=== PATIENT | female | born 1975 | race Caucasian/White ===

== ENCOUNTER 2016-09-10 12:29 | Emergency (ER) | payer OTHER ==
[~2016-09-10] VITALS: Ht 172.7 cm; Wt 62.0 kg
[~2016-09-10 12:29] MED LIST: METH5TAB4 PO
[2016-09-10 12:31] VITALS: BP 107/71; PULSE 65; RESP 17; TEMP 98.1; O2SAT 100
[2016-09-10] MEDS ORDERED: METH5TAB4 PO (12:50)
[2016-09-10] MEDS ORDERED: BENZ100 PO (13:12)
[2016-09-10] MEDS ORDERED: PRED10PA2 PO (13:12)
--- NOTE | 2016-09-10 13:13 | PD ---
HPI . Persistent cough Chief Complaint: Cold / Flu Symptoms Time Seen by Provider: 13:02 Travel History International Travel<30 days: No Contact w/Intl Traveler<30days: No Traveled to known affect area: No History of Present Illness HPI Patient presents with a 3 week history of persistent cough. Fever. Cough is nonproductive. The severity of the cough seems to wax and wane. He was seen at urgent care at the onset of her illness and was treated with body aches and steroids. She states that she was on steroids for about a week. She initially seemed better. PFSH Past Medical History Cardiovascular Problems: No Diminished Hearing: No Genitourinary: Yes (HX OF OVARIAN CYSTS) Neurologic: Yes (L4 L5 HERNIATION CAUSES TINGLING IN FEET) Reproductive: Yes ("ENDOMETRIOSIS" NOT SURE) Immunizations Current: Yes Thyroid Disease: Yes (hyperthyroidism) ?: Not LMP: 09/10/2016 : 2 Para: 2 Tubal Ligation: Yes Past Surgical History Other Surgery: Yes (breast augmentation, abdominoplasty with revision) Family History Family Myocardial Infarction: Yes (AGE 48 YEARS - DAD HAD [place] ) Social History Alcohol Use: No Tobacco Use: Yes (07/23 ppd) Substance Use: Yes (marijauna edibles rarely) Allergies-Medications (Allergen,Severity, Reaction): Coded Allergies: No Known Allergies (Verified , 09/10/16) Reported Meds & Prescriptions Reported Meds & Active Scripts Active Tessalon Perles (Benzonatate) 100 Mg Cap 200 Mg PO TID PRN Prednisone (48) 10 mg tab Dose Pack (Prednisone) 10 Mg Dspk 10 Mg PO DIRECTED Reported Methimazole 5 Mg Tab 5 Mg PO DAILY Review of Systems Except as stated in HPI: all other systems reviewed are Neg General / Constitutional: No: Fever, Chills HENT: No: Congestion Respiratory: Positive: Cough Physical Exam Narrative GENERAL: Healthy-appearing young woman in no acute distress. SKIN: Warm and dry. HEAD: Atraumatic. Normocephalic. EYES: Pupils equal and round. ENT: No nasal bleeding or discharge. Mucous membranes pink and moist. NECK: Trachea midline. Neck is supple. CARDIOVASCULAR: Regular rate and rhythm. Heart sounds are normal. RESPIRATORY: No accessory muscle use. Lungs are clear with full air movement throughout. GASTROINTESTINAL: Abdomen soft, non-tender, nondistended. MUSCULOSKELETAL: No obvious deformities. No edema. NEUROLOGICAL: Awake and alert. No obvious cranial nerve deficits. Motor grossly within normal limits. Normal speech. PSYCHIATRIC: Appropriate mood and affect; insight and judgment normal. Data Data Last Documented VS Vital Signs Date Time Temp Pulse Resp B/P Pulse Ox O2 Delivery O2 Flow Rate FiO2 09/10/16 12:31 98.1 65 17 107/71 100 Orders Chest, Pa & Lat (09/10/16 13:02) MDM Medical Decision Making Medical Screen Exam Complete: Yes Emergency Medical Condition: Yes Differential Diagnosis Differential diagnosis includes but is not limited to viral respiratory illness , bronchitis, pneumonia, allergies, CHF, asthma/COPD. Narrative Course Patient presents for the evaluation of a 3 week long cough. Her lung exam is benign. Chest x-ray is read as negative by the radiologist. The chest x-ray was independently viewed by me. Diagnosis Primary Impression: Cough Patient Instructions: Acute Cough (GEN), General Instructions Scripts Benzonatate (Tessalon Perles)100 Mg [id number] Mg PO TID PRN (COUGH) #20 CAP Ref 0 Prov:Darlene Cloud MD 09/10/16 Prednisone (48) 10 mg tab Dose Pack 10 Mg [id number] Mg PO DIRECTED #1 DSPK Ref 0 Prov:Darlene Cloud MD 09/10/16 Disposition: 01 DISCHARGE HOME Condition: Stable Darlene Cloud MD Sep 10, 2016 13:12
--- NOTE | 2016-09-10 13:35 | RADHPO ---
EXAM DATE/TIME: 09/10/2016 13:06 [facility] COMPARISON: No previous studies available for comparison. INDICATIONS : Cough. MEDICAL HISTORY : Smoker. SURGICAL HISTORY : None. ENCOUNTER: Initial ACUITY: 3 weeks PAIN SCORE: 0/10 LOCATION: Bilateral chest FINDINGS: PA and lateral views of the chest demonstrate the lungs to be symmetrically aerated without evidence of mass, infiltrate or effusion. The cardiomediastinal contours are unremarkable. Osseous structure s are intact. CONCLUSION: Negative for an acute process. Manoj Martínze MD FACR on September 10, 2016 at 13:33 Board Certified Radiologist. This report was verified electronically.
== END 2016-09-10 13:46 | disposition home or self-care (01) ==
LOC: PHEFT 12:29
DX: R05 Cough (principal); F17.210 Nicotine dependence, cigarettes, uncomplicated
CPT/HCPCS: 71020; 99283

== ENCOUNTER 2016-11-19 14:15 | Emergency (ER) | payer OTHER ==
[~2016-11-19] VITALS: Ht 172.7 cm; Wt 58.8 kg
[~2016-11-19 14:15] MED LIST changes: +BENZ100 PO; +PRED10PA2 PO
[2016-11-19 14:24] VITALS: BP 106/77; PULSE 72; RESP 16; TEMP 98.5; O2SAT 100
[2016-11-19] MEDS ORDERED: CITA10TA4 PO (14:52)
[2016-11-19] MEDS ORDERED: SODIUM CHLORIDE 0.9% FLUSH 10 ML FLUSH IVF PRN (15:00)
[2016-11-19 15:04] VITALS: RESP 16; O2SAT 98
[2016-11-19 15:05] VITALS: BP_SYST 106; BP_SYST 107; BP_DIAS 66; BP_DIAS 77; PULSE 72; RESP 16; O2SAT 99
[2016-11-19 15:20] LABS: AUTOMATED NEUTROPHIL # 5.2 TH/MM3 (1.8-7.7); BASOPHIL # 0.3 TH/MM3 (0-0.2); BASOPHIL % 3.6 % (0.0-2.0); EOSINOPHIL # 0.2 TH/MM3 (0-0.4); EOSINOPHIL % 1.9 % (0.0-4.0); HEMATOCRIT 38.8 % (35.0-46.0); HEMO FLAGS DIFF FINAL; LYMPH % 23.1 % (9.0-44.0); LYMPHOCYTE # 1.8 TH/MM3 (1.0-4.8); MEAN CELL VOLUME 93.7 FL (80.0-100.0); MEAN CORPUSCULAR HEMOGLOBIN 31.5 PG (27.0-34.0); MEAN CORPUSCULAR HGB CONC 33.6 % (32.0-36.0); MONO % 5.6 % (0.0-8.0); NEUT % 65.8 % (16.0-70.0); PLATELET COUNT 157 TH/MM3 (150-450); RED BLOOD COUNT 4.14 MIL/MM3 (4.00-5.30); RED CELL DISTRIBUTION WIDTH 11.4 % (11.6-17.2); WHITE BLOOD COUNT 7.9 TH/MM3 (4.0-11.0)
--- NOTE | 2016-11-19 15:25 | RADHPO ---
EXAM DATE/TIME: 11/19/2016 15:07 [facility] COMPARISON: CHEST PA & LAT, September 10, 2016, 13:06. INDICATIONS : Left sided chest pain for 24 hours MEDICAL HISTORY : None. SURGICAL HISTORY : None. ENCOUNTER: Initial ACUITY: 1 day PAIN SCORE: 1/10 LOCATION: Left upper chest FINDINGS: A single view of the chest demonstrates the lungs to be symmetrically aerated without evidence of mas s, infiltrate or effusion. The cardiomediastinal contours are unremarkable. Osseous structures are intact. CONCLUSION: No acute disease. Renato López MD on November 19, 2016 at 15:23 Board Certified Radiologist. This report was verified electronically.
[2016-11-19 15:29] LABS: CHLORIDE 107 MEQ/L (98-107); POTASSIUM 3.5 MEQ/L (3.5-5.1); SODIUM (NA) 143 MEQ/L (136-145)
[2016-11-19 15:32] LABS: ANION GAP 7 MEQ/L (5-15); BICARBONATE 29.3 MEQ/L (21.0-32.0); BLOOD UREA NITROGEN 8 MG/DL (7-18); MAGNESIUM 2.1 MG/DL (1.5-2.5)
[2016-11-19 15:33] LABS: APTT (PATIENT) 27.5 SEC (24.3-30.1); PROTHROMBIN TIME - PATIENT 10.6 SEC (9.8-11.6)
[2016-11-19 15:35] LABS: ALT (GPT) 20 U/L (10-53); AST (GOT) 9 U/L (15-37); GLOMERULAR FILTRATION RATE 79 ML/MIN (>89)
[2016-11-19 15:37] LABS: TOTAL BILIRUBIN ADULT 0.4 MG/DL (0.2-1.0)
[2016-11-19 15:38] LABS: ALKALINE PHOSPHATASE 52 U/L (45-117)
--- NOTE | 2016-11-19 15:52 | PD ---
HPI Chief Complaint: Musculoskeletal Complaint Time Seen by Provider: 14:30 Travel History International Travel<30 days: No Contact w/Intl Traveler<30days: No Traveled to known affect area: No History of Present Illness HPI This is a 41-year-old female who presents to the emergency department with chest discomfort that started yesterday described as pain along the left anterior chest that radiates to the left back right below her left shoulder, constant since yesterday, worse with laying flat, with no associated shortness of breath or diaphoresis. She has felt a little bit nauseous and lightheaded with some dizziness that prompted her to come to the emergency department. She has a history of hyperthyroidism and her father had a heart attack in his 40s. She has about a [id number] smoking history. PFSH Past Medical History Anxiety: Yes Cardiovascular Problems: No Diminished Hearing: No Genitourinary: Yes (HX OF OVARIAN CYSTS) Neurologic: Yes (L4 L5 HERNIATION CAUSES TINGLING IN FEET) Reproductive: Yes ("ENDOMETRIOSIS" NOT SURE) Immunizations Current: Yes Thyroid Disease: Yes (hyperthyroidism) Tetanus Vaccination: < 5 Years Influenza Vaccination: No ?: Not LMP: "1 WEEK AGO"; STATED 11/19/16 : 2 Para: 2 Tubal Ligation: Yes Past Surgical History Other Surgery: Yes (breast augmentation, abdominoplasty with revision) Family History Family Myocardial Infarction: Yes (AGE 48 YEARS - DAD HAD [place] ) Social History Alcohol Use: No Tobacco Use: Yes (07/23 PPD HX; STATES "QUIT TODAY" 11/19/16) Substance Use: Yes (marijauna edibles rarely; LAST USED 10/2016) Allergies-Medications (Allergen,Severity, Reaction): Coded Allergies: No Known Allergies (Verified , 11/19/16) Reported Meds & Prescriptions Reported Meds & Active Scripts Active Reported Citalopram (Citalopram Hydrobromide) 10 Mg Tab 10 Mg PO DAILY Methimazole 5 Mg Tab 5 Mg PO EVERY OTHER DAY Review of Systems Except as stated in HPI: all other systems reviewed are Neg Physical Exam Narrative GENERAL:Well appearing, no acute distress SKIN: Focused skin assessment warm and dry. No rash. HEAD: Atraumatic. Normocephalic. EYES: Pupils equal and round. No injection or drainage. ENT: Moist mucous membranes NECK: Trachea midline. CARDIOVASCULAR: Regular rate and rhythm. No murmur appreciated. RESPIRATORY: Clear to auscultation. Breath sounds equal bilaterally. GASTROINTESTINAL: Abdomen soft, non-tender, nondistended. MUSCULOSKELETAL: No obvious deformities. NEUROLOGICAL: Awake and alert. No obvious cranial nerve deficits. Moving all extremities. PSYCHIATRIC: Appropriate mood and affect; insight and judgment normal. Data Data Last Documented VS Vital Signs Date Time Temp Pulse Resp B/P Pulse Ox O2 Delivery O2 Flow Rate FiO2 11/19/16 15:05 72 16 106/66 99 Room Air 107/77 11/19/16 14:24 98.5 Orders Electrocardiogram (11/19/16 14:57) Complete Blood Count With Diff (11/19/16 14:57) Comprehensive Metabolic Panel (11/19/16 14:57) Magnesium (Mg) (11/19/16 14:57) Prothrombin Time / Inr (Pt) (11/19/16 14:57) Act Partial Throm Time (Ptt) (11/19/16 14:57) Troponin I (11/19/16 14:57) Chest, Single Ap (11/19/16 14:57) Ecg Monitoring (11/19/16 14:57) Bilateral Bp Monitoring (11/19/16 14:57) Iv Access Insert/Monitor (11/19/16 14:57) Oximetry (11/19/16 14:57) Oxygen Administration (11/19/16 14:57) Sodium Chloride 0.9% Flush (Ns Flush) (11/19/16 15:00) Labs Laboratory Tests Test 11/19/16 15:10 White Blood Count 7.9 TH/MM3 Red Blood Count 4.14 MIL/MM3 Hemoglobin 13.1 GM/DL Hematocrit 38.8 % Mean Corpuscular Volume 93.7 FL Mean Corpuscular Hemoglobin 31.5 PG Mean Corpuscular Hemoglobin 33.6 % Concent Red Cell Distribution Width 11.4 % Platelet Count 157 TH/MM3 Mean Platelet Volume 10.0 FL Neutrophils (%) (Auto) 65.8 % Lymphocytes (%) (Auto) 23.1 % Monocytes (%) (Auto) 5.6 % Eosinophils (%) (Auto) 1.9 % Basophils (%) (Auto) 3.6 % Neutrophils # (Auto) 5.2 TH/MM3 Lymphocytes # (Auto) 1.8 TH/MM3 Monocytes # (Auto) 0.4 TH/MM3 Eosinophils # (Auto) 0.2 TH/MM3 Basophils # (Auto) 0.3 TH/MM3 CBC Comment DIFF FINAL Differential Comment Prothrombin Time 10.6 SEC Prothromb Time International 1.0 RATIO Ratio Activated Partial 27.5 SEC Thromboplast Time Sodium Level 143 MEQ/L Potassium Level 3.5 MEQ/L Chloride Level 107 MEQ/L Carbon Dioxide Level 29.3 MEQ/L Anion Gap 7 MEQ/L Blood Urea Nitrogen 8 MG/DL Creatinine 0.80 MG/DL Estimat Glomerular Filtration 79 ML/MIN Rate Random Glucose 108 MG/DL Calcium Level 8.6 MG/DL Magnesium Level 2.1 MG/DL Total Bilirubin 0.4 MG/DL Aspartate Amino Transf 9 U/L (AST/SGOT) Alanine Aminotransferase 20 U/L (ALT/SGPT) Alkaline Phosphatase 52 U/L Troponin I LESS THAN 0.02 NG/ML Total Protein 7.0 GM/DL Albumin 3.7 GM/DL MDM Medical Decision Making Medical Screen Exam Complete: Yes Emergency Medical Condition: Yes Interpretation(s) Afebrile, no tachycardia, normotensive No leukocytosis Electrolytes are reassuring Troponin is normal Coags normal Chest x-ray: No acute process EKG: Normal sinus rhythm with no ST changes Differential Diagnosis Costochondritis, pericarditis, anxiety, pulmonary embolism, acute coronary syndrome, shingles Narrative Course This is a 41-year-old female who presents to the emergency department with left- sided chest pain that started yesterday. She was placed on a monitor and an IV was established. EKG is nonischemic. Labs were obtained which were reassuring including a normal troponin. Chest x-rays reassuring. I don't see any risk factors for acute pulmonary embolism and her pain would be atypical. She was seen in March of last year for similar symptoms and was hospitalized and had a stress test which was reassuring. In the setting of this and her inherent low risk, I don't think she requires continued evaluation for acute coronary syndrome and I think she can follow-up with her primary care physician. Her father is actively dying and I suspect her presentation may be somewhat related to anxiety. Diagnosis Primary Impression: Chest pain of unknown etiology Patient Instructions: General Instructions Additional Instructions: If you develop severe chest pain, shortness of breath, sweating, lightheadedness , dizziness or difficulty breathing return to the emergency department immediately. Followup with your primary care physician in 2-3 days if your symptoms are not resolved. Med/Other Pt SpecificInfo: No Change to Meds Disposition: 01 DISCHARGE HOME Condition: Stable Rosa Fierro MD November 19, 2016 15:52
[2016-11-19 16:22] VITALS: BP 104/64
--- NOTE | 2016-11-20 18:28 | EKG ---
Date Performed: 11/19/2016 Time Performed: 15:13:08 PTAGE: 41 years EKG: Sinus rhythm Normal ECG Compared to prior tracing no significant change PREVIOUS TRACING : 04/17/2016 05.58 DOCTOR: John Muro Interpretating Date/Time 11/20/2016 18:25:11
== END 2016-11-19 16:27 | disposition home or self-care (01) ==
LOC: PHED 14:15
DX: R07.89 Other chest pain (principal); R11.0 Nausea; R42 Dizziness and giddiness; E05.90 Thyrotoxicosis, unspecified without thyrotoxic crisis or storm; F17.210 Nicotine dependence, cigarettes, uncomplicated
CPT/HCPCS: 71010; 80053; 83735; 84484; 85025; 85610; 85730; 93005

== ENCOUNTER 2017-03-02 11:18 | Emergency (ER) | payer OTHER ==
[~2017-03-02] VITALS: Ht 172.7 cm; Wt 60.0 kg
[~2017-03-02 11:18] MED LIST changes: -BENZ100 PO; +CITA10TA4 PO; -PRED10PA2 PO
[2017-03-02 11:28] VITALS: BP 121/74; PULSE 69; RESP 20; TEMP 98; O2SAT 98
[2017-03-02] MEDS ORDERED: SODIUM CHLOR 0.9% 1000 ML INJ 1,000 ML IV ONE (12:00)
[2017-03-02] MEDS ORDERED: PROCHLORPERAZINE INJ 10 MG/2 ML VIAL IV PUSH ONE (12:00)
[2017-03-02] MEDS ORDERED: MORPHINE SULFATE 4 MG/ML INJ IV PUSH ONE (12:00)
--- NOTE | 2017-03-02 12:04 | PD ---
HPI Chief Complaint: Headache Time Seen by Provider: 11:43 Travel History International Travel<30 days: No Contact w/Intl Traveler<30days: No Traveled to known affect area: No History of Present Illness HPI This is a 41-year-old female who presents today with complaint of 2 day history of headache. Patient states it started suddenly and has not resolved. She reports photophobia with severe nausea and some vomiting. Patient also reports neck stiffness. She denies any fevers, chills. When asked if she's ever had a headache this bad, patient states she's never had a headache this bad. She denies any history of aneurysms that she is aware of. There are no other complaints time my examination. PFSH Past Medical History Anxiety: Yes Cardiovascular Problems: No Diminished Hearing: No Genitourinary: Yes (HX OF OVARIAN CYSTS) Neurologic: Yes (L4 L5 HERNIATION CAUSES TINGLING IN FEET) Reproductive: Yes ("ENDOMETRIOSIS" NOT SURE) Immunizations Current: Yes Thyroid Disease: Yes (hyperthyroidism) Influenza Vaccination: No ?: Not : 2 Para: 2 Tubal Ligation: Yes Past Surgical History Other Surgery: Yes (breast augmentation, abdominoplasty with revision) Family History Family Myocardial Infarction: Yes (AGE 48 YEARS - DAD HAD [place] ) Social History Alcohol Use: Yes (SOCIALLY) Tobacco Use: Yes (07/23 PPD HX; STATES "QUIT TODAY" 11/19/16) Substance Use: Yes (marijauna edibles rarely; LAST USED 10/2016) Allergies-Medications (Allergen,Severity, Reaction): Coded Allergies: No Known Allergies (Verified , 03/02/17) Reported Meds & Prescriptions Reported Meds & Active Scripts Active Lortab (Hydrocodone-Acetaminophen) 5-325 Mg Tab 1 Tab PO Q6H PRN Prochlorperazine Maleate 10 Mg Tab 10 Mg PO Q6H PRN Review of Systems Except as stated in HPI: all other systems reviewed are Neg Eyes: Positive: Blurred Vision, No: Diploplia HENT: Positive: Headaches, Neck Stiffness (mild), No: Lightheadedness Cardiovascular: No: Chest Pain or Discomfort, Palpitations Respiratory: No: Cough, Shortness of Breath Gastrointestinal: Positive: Nausea, Vomiting, No: Diarrhea, Abdominal Pain Musculoskeletal: No: Weakness, Pain Skin: Positive Rash, Positive Itching Neurologic: Positive: Headache, No: Weakness, Dizziness, Change in Mentation Psychiatric: No: Disorder of Thought Physical Exam Narrative GENERAL: Well-developed well-nourished female in obvious distress. The patient states the lights are bothering her. SKIN: Focused skin assessment warm/dry. HEAD: Atraumatic. Normocephalic. EYES: Pupils equal and round. No scleral icterus. No injection or drainage. ENT: No nasal bleeding or discharge. Mucous membranes pink and moist. NECK: Trachea midline. She is able to flex her neck however states that the light in the movement hurts her head. CARDIOVASCULAR: Regular rate and rhythm. No murmur appreciated. RESPIRATORY: No accessory muscle use. Clear to auscultation. Breath sounds equal bilaterally. GASTROINTESTINAL: Abdomen soft, non-tender, nondistended. Hepatic and splenic margins not palpable. MUSCULOSKELETAL: No obvious deformities. No clubbing. No cyanosis. No edema. NEUROLOGICAL: Awake and alert. No obvious cranial nerve deficits. Motor grossly within normal limits. Normal speech. PSYCHIATRIC: Appropriate mood and affect; insight and judgment normal. Data Data Last Documented VS Vital Signs Date Time Temp Pulse Resp B/P Pulse Ox O2 Delivery O2 Flow Rate FiO2 03/02/17 12:50 16 03/02/17 12:34 68 104/72 98 Room Air 03/02/17 11:28 98.0 Orders Complete Blood Count With Diff (03/02/17 11:55) Basic Metabolic Panel (Bmp) (03/02/17 11:55) Prothrombin Time / Inr (Pt) (03/02/17 11:55) Act Partial Throm Time (Ptt) (03/02/17 11:55) Ct Brain W/O Iv Contrast(Rout) (03/02/17 11:55) Iv Access Insert/Monitor (03/02/17 11:55) Ecg Monitoring (03/02/17 11:55) Oximetry (03/02/17 11:55) Ct Lumb Spine W/O Contrast (03/02/17 11:55) Sodium Chlor 0.9% 1000 Ml Inj (Ns 1000 M (03/02/17 12:00) Prochlorperazine Inj (Compazine Inj) (03/02/17 12:00) Morphine Inj (Morphine Inj) (03/02/17 12:00) Labs Laboratory Tests Test 8/14/17 12:25 White Blood Count 8.3 TH/MM3 Red Blood Count 4.28 MIL/MM3 Hemoglobin 13.7 GM/DL Hematocrit 40.0 % Mean Corpuscular Volume 93.7 FL Mean Corpuscular Hemoglobin 32.0 PG Mean Corpuscular Hemoglobin 34.2 % Concent Red Cell Distribution Width 11.2 % Platelet Count 154 TH/MM3 Mean Platelet Volume 9.2 FL Neutrophils (%) (Auto) 68.5 % Lymphocytes (%) (Auto) 20.1 % Monocytes (%) (Auto) 8.4 % Eosinophils (%) (Auto) 2.5 % Basophils (%) (Auto) 0.5 % Neutrophils # (Auto) 5.7 TH/MM3 Lymphocytes # (Auto) 1.7 TH/MM3 Monocytes # (Auto) 0.7 TH/MM3 Eosinophils # (Auto) 0.2 TH/MM3 Basophils # (Auto) 0.0 TH/MM3 CBC Comment DIFF FINAL Differential Comment Prothrombin Time 10.7 SEC Prothromb Time International 1.0 RATIO Ratio Activated Partial 27.4 SEC Thromboplast Time Sodium Level 141 MEQ/L Potassium Level 3.8 MEQ/L Chloride Level 109 MEQ/L Carbon Dioxide Level 25.1 MEQ/L Anion Gap 7 MEQ/L Blood Urea Nitrogen 9 MG/DL Creatinine 0.86 MG/DL Estimat Glomerular Filtration 73 ML/MIN Rate Random Glucose 80 MG/DL Calcium Level 8.8 MG/DL MDM Medical Decision Making Medical Screen Exam Complete: Yes Emergency Medical Condition: Yes Differential Diagnosis Migraine variant versus subarachnoid hemorrhage versus meningitis. Narrative Course 41-year-old female who presents with 2 day history of headache. Patient states this is worse than her previous headaches. She has no reported fevers, chills. Head CT was negative for acute process. The patient does have a history of lumbar deformity which is not new. The patient's laboratory tests are within normal limits. She states she feels much improved after 2 mg of morphine and 10 mg of Compazine and a liter fluid. I offered the patient a lumbar puncture stating that we could not be sure this is not a small hemorrhage. After the procedure and risks and benefits were described, the patient has declined the lumbar puncture. I did tell her that if she did have a hemorrhage, it could be catastrophic. She states she understands this but still does not wish to have the lumbar puncture performed. She'll be given a prescription for Compazine and Lortab. She is instructed return if she does any worsening headache, fevers , chills, or any other reason that concerned her. She states she understands this will do so as directed. Diagnosis Primary Impression: Cephalgia Additional Instructions: Return if feeling worse, fevers chills, or any other reason the concerns are. Follow up with primary care physician. Med/Other Pt SpecificInfo: Prescription(s) given Scripts Hydrocodone-Acetaminophen (Lortab)5-325 Mg Tab1 Tab PO Q6H PRN (PAIN) #10 TAB Ref 0 Prov:Dean Stinson MD 03/02/17 Prochlorperazine Maleate 10 Mg Tab10 Mg PO Q6H PRN (NAUSEA OR VOMITING) #15 TAB Ref 0 Prov:Dean Stinson MD 03/02/17 Disposition: 01 DISCHARGE HOME Condition: Stable Dean Stinson MD Mar 02, 2017 12:04
[2017-03-02 12:30] LABS: AUTOMATED NEUTROPHIL # 5.7 TH/MM3 (1.8-7.7); BASOPHIL % 0.5 % (0.0-2.0); EOSINOPHIL # 0.2 TH/MM3 (0-0.4); EOSINOPHIL % 2.5 % (0.0-4.0); HEMO FLAGS DIFF FINAL; LYMPH % 20.1 % (9.0-44.0); LYMPHOCYTE # 1.7 TH/MM3 (1.0-4.8); MEAN CELL VOLUME 93.7 FL (80.0-100.0); MEAN CORPUSCULAR HGB CONC 34.2 % (32.0-36.0); MONO % 8.4 % (0.0-8.0); NEUT % 68.5 % (16.0-70.0); PLATELET COUNT 154 TH/MM3 (150-450); RED BLOOD COUNT 4.28 MIL/MM3 (4.00-5.30); RED CELL DISTRIBUTION WIDTH 11.2 % (11.6-17.2); WHITE BLOOD COUNT 8.3 TH/MM3 (4.0-11.0)
[2017-03-02 12:34] VITALS: BP 104/72; PULSE 68; RESP 16; O2SAT 98
[2017-03-02 12:45] LABS: POTASSIUM 3.8 MEQ/L (3.5-5.1)
[2017-03-02 12:47] LABS: BICARBONATE 25.1 MEQ/L (21.0-32.0)
[2017-03-02 12:49] LABS: APTT (PATIENT) 27.4 SEC (24.3-30.1); PROTHROMBIN TIME - PATIENT 10.7 SEC (9.8-11.6)
--- NOTE | 2017-03-02 13:23 | RADRPT ---
EXAM DATE/TIME: 03/02/2017 13:03 [facility] COMPARISON: No previous studies available for comparison. INDICATIONS : Headache. RADIATION DOSE: 56.85 CTDIvol (mGy) MEDICAL HISTORY : Hyperthyroidism. SURGICAL HISTORY : Tubal ligation. ENCOUNTER: Initial ACUITY: 2 days PAIN SCALE: 5/10 LOCATION: cranial TECHNIQUE: Multiple contiguous axial images were obtained of the head. Using automated exposure control and adj ustment of the mA and/or kV according to patient size, radiation dose was kept as low as reasonably a chievable to obtain optimal diagnostic quality images. DICOM format image data is available electro nically for review and comparison. FINDINGS: CEREBRUM: The ventricles are normal for age. No evidence of midline shift, mass lesion, hemorrhage or acute in farction. No extra-axial fluid collections are seen. POSTERIOR FOSSA: The cerebellum and brainstem are intact. The 4th ventricle is midline. The cerebellopontine angle i s unremarkable. EXTRACRANIAL: The visualized portion of the orbits is intact. SKULL: The calvaria is intact. No evidence of skull fracture. CONCLUSION: 1. No acute intracranial abnormality. Karlo Martínez MD on March 02, 2017 at 13:21 Board Certified Radiologist. This report was verified electronically.
--- NOTE | 2017-03-02 13:50 | RADRPT ---
EXAM DATE/TIME: 03/02/2017 13:07 [facility] COMPARISON: No previous studies available for comparison. INDICATIONS : Abnormal lumbar spine. Spina bifida. Pain RADIATION DOSE: 12.09 CTDIvol (mGy) MEDICAL HISTORY : Hyperthyroidism. SURGICAL HISTORY : Tubal ligation. ENCOUNTER: Initial ACUITY: 2 days PAIN SCALE: 0/10 LOCATION: spine TECHNIQUE: Volumetric scanning of the lumbar spine was performed. Multiplanar reconstructions in the sagittal, coronal and oblique axial planes were performed. Using automated exposure control and adjustment of the mA and/or kV according to patient size, radiation dose was kept as low as reasonably achievable t o obtain optimal diagnostic quality images. DICOM format image data is available electronically for review and comparison. FINDINGS: VERTEBRAE: Normal vertebral body height. No fracture is identified. ALIGNMENT: There is no anterolisthesis or retrolisthesis. T12-L1: No disc herniation, canal stenosis, or neural foraminal stenosis. L1-L2: No disc herniation, canal stenosis, or neural foraminal stenosis. L2-L3: No disc herniation, canal stenosis, or neural foraminal stenosis. L3-L4: No disc herniation, canal stenosis, or neural foraminal stenosis. L4-L5: There is severe disc height loss with endplate sclerosis and endplate osteophytes and vacuum disc phe nomenon. There is a diffuse disc bulge with left paracentral disc protrusion. Left lateral recess is effaced. No spinal canal stenosis is appreciated. There is moderate to severe neural foraminal stenos is bilaterally. L5-S1: There is a diffuse disc bulge. No spinal canal stenosis or neural foraminal narrowing is visualized. CONCLUSION: 1. No acute lumbar spine abnormality is identified. 2. Severe degenerative disc disease at L4-L5 with a left paracentral disc protrusion effacing left la teral recess. There is also moderate to severe neural foraminal stenosis bilaterally at this level. Renato Blake MD on March 02, 2017 at 13:45 Board Certified Radiologist. This report was verified electronically.
[2017-03-02] MEDS ORDERED: PROC10TA PO (13:52)
[2017-03-02] MEDS ORDERED: HYDR-3533 PO (13:52)
[2017-03-02 14:26] VITALS: BP 110/72; PULSE 61; RESP 16; O2SAT 100
== END 2017-03-02 14:35 | disposition home or self-care (01) ==
LOC: PHED 11:18
DX: R51 Headache (principal); R11.2 Nausea with vomiting, unspecified; F17.200 Nicotine dependence, unspecified, uncomplicated; E05.90 Thyrotoxicosis, unspecified without thyrotoxic crisis or storm
CPT/HCPCS: 70450; 72131; 80048; 85025; 85610; 85730; 96361; 96374; 96375; 99285; J0780; J2270; J7030

== ENCOUNTER 2017-06-03 18:48 | Emergency (ER) | payer OTHER ==
[~2017-06-03] VITALS: Ht 172.7 cm; Wt 62.6 kg
[~2017-06-03 18:48] MED LIST changes: -CITA10TA4 PO; +HYDR-3533 PO; -METH5TAB4 PO; +PROC10TA PO
[2017-06-03 18:53] VITALS: BP 143/69; PULSE 83; RESP 18; TEMP 98.3; O2SAT 100
[2017-06-03 19:07] VITALS: O2SAT 100
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
[2017-06-03] MEDS ORDERED: SODIUM CHLORIDE 0.9% FLUSH 10 ML FLUSH IVF PRN (19:15)
[2017-06-03 19:23] LABS: BLOOD GAS BASE EXCESS -2.6 mmol/L (-2-2); BLOOD GAS CARBOXYHEMOGLOBIN 1.6 % (0-4); BLOOD GAS HCO3 20 mmol/L (22-26); BLOOD GAS O2 HGB SATURATION 97 % (90-100); BLOOD GAS OXYGEN CONTENT 17.5 Vol % (12.0-20.0); BLOOD GAS PCO2 27 mmHG (38-42); BLOOD GAS PO2 113 mmHG (61-120); BLOOD GAS TOTAL HGB 12.8 G/DL (12.0-16.0); TEMP CORR TO 98.6
[2017-06-03 19:24] VITALS: BP 118/68; PULSE 72; RESP 18; O2SAT 100
[2017-06-03 19:24] LABS: CRITICAL VALUE NO; DRAW SITE RT RADIAL; FIO2 21 %; NUMBER OF ARTERIAL PUNCTURES 1; STAT YES; ULNAR PULSE Y
[2017-06-03] MEDS ORDERED: CITA10TA4 PO (19:26)
[2017-06-03 19:27] LABS: AUTOMATED NEUTROPHIL # 5.1 TH/MM3 (1.8-7.7); BASOPHIL % 0.4 % (0.0-2.0); EOSINOPHIL # 0.2 TH/MM3 (0-0.4); HEMATOCRIT 40.3 % (35.0-46.0); HEMO FLAGS DIFF FINAL; MEAN CELL VOLUME 89.7 FL (80.0-100.0); MEAN CORPUSCULAR HEMOGLOBIN 30.4 PG (27.0-34.0); MEAN CORPUSCULAR HGB CONC 33.9 % (32.0-36.0); MONO % 10.3 % (0.0-8.0); NEUT % 62.3 % (16.0-70.0); PLATELET COUNT 158 TH/MM3 (150-450); RED CELL DISTRIBUTION WIDTH 11.3 % (11.6-17.2); WHITE BLOOD COUNT 8.1 TH/MM3 (4.0-11.0)
[2017-06-03 19:36] LABS: CHLORIDE 105 MEQ/L (98-107); SODIUM (NA) 137 MEQ/L (136-145)
[2017-06-03 19:39] LABS: ANION GAP 9 MEQ/L (5-15); BICARBONATE 23.4 MEQ/L (21.0-32.0); BLOOD UREA NITROGEN 12 MG/DL (7-18)
[2017-06-03 19:43] LABS: GLOMERULAR FILTRATION RATE 88 ML/MIN (>89)
[2017-06-03 19:47] LABS: BETA HCG QUANT LESS THAN 1 MIU/ML (0-5)
[2017-06-03 19:50] LABS: APTT (PATIENT) 25.4 SEC (24.3-30.1); CREATINE KINASE 49 U/L (26-192); INTERNATIONAL NORMALIZED RATIO 0.9 RATIO; PROTHROMBIN TIME - PATIENT 9.8 SEC (9.8-11.6)
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
[2017-06-03 20:56] VITALS: BP 120/77; PULSE 74; RESP 18; O2SAT 95
[2017-06-03] MEDS ORDERED: IOHEXOL 350 MG/ML 10 ML VIAL (for RAD DIAG) IVCONTRAST ONE (21:07)
--- NOTE | 2017-06-03 21:37 | RADRPT ---
EXAM DATE/TIME: 06/03/2017 20:55 [facility] COMPARISON: No previous studies available for comparison. INDICATIONS : Shortness of breath. IV CONTRAST: 60 cc Omnipaque 350 (iohexol) IV RADIATION DOSE: 5.50 CTDIvol (mGy) MEDICAL HISTORY : None SURGICAL HISTORY : None. ENCOUNTER: Initial ACUITY: 3 days PAIN SCALE: 0/10 LOCATION: chest TECHNIQUE: Volumetric scanning of the chest was performed using a pulmonary embolism protocol MIP images were re constructed. Using automated exposure control and adjustment of the mA and/or kV according to patien t size, radiation dose was kept as low as reasonably achievable to obtain optimal diagnostic quality images. DICOM format image data is available electronically for review and comparison. Follow-up recommendations for detected pulmonary nodules are based at a minimum on nodule size and pa tient risk factors according to Fleischner Society Guidelines. FINDINGS: PULMONARY ARTERIES: No filling defects are seen in the pulmonary arteries through the segmental level. LUNGS: There is no consolidation or pneumothorax . No concerning pulmonary nodule is visualized. PLEURAE: There is no pleural thickening or pleural effusion. MEDIASTINUM: There is good visualization of the great vessels of the middle mediastinum. No evidence of mediastin al or hilar adenopathy/mass. MUSCULOSKELETAL: Within normal limits for patient age. MISCELLANEOUS: The visualized upper abdominal organs demonstrate no acute abnormality. Bilateral breast implants are present. CONCLUSION: No pulmonary embolus. Renato Gill MD on June 03, 2017 at 21:34 Board Certified Radiologist. This report was verified electronically.
[2017-06-03 21:54] VITALS: BP 114/68; PULSE 73; RESP 18; O2SAT 100
[2017-06-03 22:17] VITALS: BP 120/66
--- NOTE | 2017-06-04 16:07 | EKG ---
Date Performed: 06/03/2017 Time Performed: 19:12:40 PTAGE: 42 years EKG: Sinus rhythm NORMAL ECG PREVIOUS TRACING : 11/19/2016 15.13 Compared to prior tracing no significant change DOCTOR: Grecia Maxwell Interpretating Date/Time 06/04/2017 16:04:43
== END 2017-06-03 22:23 | disposition home or self-care (01) ==
LOC: PHED 18:48
DX: R06.02 Shortness of breath (principal); F17.200 Nicotine dependence, unspecified, uncomplicated
CPT/HCPCS: 36600; 71010; 71275; 80048; 82550; 82805; 84484; 84702; 85025; 85379; 85610; 85730; 93005; 99285; Q9967